=== PATIENT | male | born 1980 | race African-American/Black ===

== ENCOUNTER 2020-01-31 17:54 | Emergency (ER) | payer OTHER ==
[~2020-01-31] VITALS: Ht 175.3 cm; Wt 52.2 kg
[2020-01-31] MEDS ORDERED: HUMULIN N100 UNIT/2 (18:09)
[2020-01-31] MEDS ORDERED: HUMULIN R500 UNIT/2 (18:09)
[2020-01-31] MEDS ORDERED: ZESTRIL2.5 MG (18:10)
[2020-01-31] MEDS ORDERED: AIRBORNE EFFER1 EACH PO (22:52)
[2020-01-31] MEDS ORDERED: ONDANSETRON ODT4 MG PO (22:52)
[2020-01-31] MEDS ORDERED: ULTRACET PO (22:52)
[2020-01-31] MEDS ORDERED: MEDROLPACK PO (22:52)
[2020-01-31] MEDS ORDERED: PROAIR DIGIHAL90 MCG IH (22:52)
[2020-01-31] MEDS ORDERED: PEPCID AC20 MG PO (22:52)
== END 2020-02-01 19:24 ==
LOC: ER 17:54 → EDBD 17:58 → ER 02-01 19:24
DX: J11.1 Influenza due to unidentified influenza virus with other respiratory manifestations (principal); E86.0 Dehydration; E11.65 Type 2 diabetes mellitus with hyperglycemia; Z20.828 Contact with and (suspected) exposure to other viral communicable diseases